=== PATIENT | female | born 1970 | race Two or more races ===

== ENCOUNTER 2021-03-03 19:53 | Emergency (ER) | payer OTHER ==
[~2021-03-03] VITALS: Ht 170.2 cm; Wt 77.1 kg
[2021-03-03 21:48] VITALS: BP 115/62
[2021-03-03 22:25] LABS: Basophils # (auto) 0 10 ^3/uL (0-0.2); Basophils % (auto) 0.4 % (0.0-2.0); Eosinophils # (auto) 0 10 ^3/uL (0-0.8); Eosinophils % (auto) 0.3 % (0.0-7.0); Hematocrit 36.3 % (36.0-46.0); Hemoglobin 12.4 g/dL (12.2-16.2); Lymphocytes # (auto) 0.7 10 ^3/uL (0.4-5.4); Lymphocytes % (auto) 6.9 % (10.0-50.0); Mean Corpuscular Hemoglobin 30.8 pg (28.0-32.0); Mean Corpuscular Hgb Conc. 34.1 g/dL (32.0-36.0); Mean Corpuscular Volume 90.4 fL (80.0-100.0); Monocytes # (auto) 0.5 10 ^3/uL (0-1.3); Monocytes % (auto) 4.7 % (0.0-12.0); Neutrophils # (auto) 8.7 10 ^3/uL (1.6-8.6); Neutrophils % (auto) 87.7 % (37.0-80.0); Platelet Count (auto) 186 10^3/uL (140-450); Red Blood Cells 4.01 10^6/uL (4.0-5.20); Red Cell Distribution Width 15.5 % (11.8-14.3); White Blood Cell 9.9 10^3/uL (4.4-10.8)
[2021-03-03 22:42] LABS: Albumin 3.7 g/dL (3.4-5.0); Amylase 67 U/L (25-115); Anion Gap 5 (5-15); Blood Urea Nitrogen 16 mg/dL (7-18); Calcium 9.2 mg/dL (8.5-10.1); Carbon Dioxide 28 mmol/L (21-32); Chloride 108 mmol/L (98-107); Glucose 110 mg/dL (74-106); Lipase 118 U/L (73-393); Potassium 3.8 mmol/L (3.5-5.1); Sodium 141 mmol/L (136-145)
[2021-03-03 22:49] LABS: Alanine Aminotransferase 20 U/L (13-56); Alkaline Phosphatase 77 U/L (45-117); Aspartate Aminotransferase 22 U/L (15-37); BUN/Creatinine Ratio 22.9; Bilirubin, Total 0.2 mg/dL (0.2-1.0); GFR African American 114 mL/min; GFR Non-African American 94 mL/min; Total Protein 7.1 g/dL (6.4-8.2)
[2021-03-03 23:27] LABS: Urine Bacteria NONE SEEN /hpf (None Seen); Urine Blood 1+ /uL (Negative); Urine Mucus FEW (None Seen); Urine WBC 2 /hpf (0 - 5)
== END 2021-03-04 01:48 | disposition left against medical advice (07) ==
LOC: ER 19:53
DX: R10.13 Epigastric pain (principal); R19.7 Diarrhea, unspecified; Z53.21 Procedure and treatment not carried out due to patient leaving prior to being seen by health care provider
CPT/HCPCS: 36415; 80053; 81001; 82150; 83690; 84484; 84702; 85025; 93005